=== PATIENT | female | born 1990 | race Hispanic/Latino ===

== ENCOUNTER 2023-03-17 11:32 | Emergency (ER) | payer OTHER ==
[~2023-03-17] VITALS: Ht 157.5 cm; Wt 86.2 kg
[2023-03-17 12:35] VITALS: O2SAT 100
[2023-03-17] MEDS ORDERED: NAPROXEN250 MG PO (12:58)
== END 2023-03-17 13:05 | disposition home or self-care (01) ==
LOC: ER 11:41
DX: M25.512 Pain in left shoulder (principal); M54.2 Cervicalgia; M54.6 Pain in thoracic spine
CPT/HCPCS: 99282